=== PATIENT | male | born 1955 | race Caucasian/White ===

== ENCOUNTER 2019-11-25 19:28 | Emergency (ER) | payer MEDICAID, SELFPAY ==
[2019-11-25 19:29] VITALS: BP 133/96; PULSE 96; RESP 18; TEMP 36; O2SAT 95; BMI 19.2
--- NOTE | 2019-11-25 19:31 | ED.RN ---
PHONE NUMBER [phone].
--- NOTE | 2019-11-25 20:22 | ED.VISSUMM ---
- ER Visit Summary Date of Service: 11/25/19 Chief Complaint: Urinary retention History of Present Illness: The patient is a 64 M who presents with urinary retention since last night. Patient states he was able to dribble a small amount throughout the day today. Patient states his last normal urination was last night. Patient admits to some urgency. Patient denies any dysuria or hematuria. Patient denies any fevers or chills. Patient states he thinks he has a history of prostatic hypertrophy but it has been a long time since he saw his primary care physician. Physical Examination: Vital signs are stable. Patient is afebrile. Patient is in no acute distress. Oral mucosa is pink and moist. Neck is supple. Trachea is midline. There is no JVD. Heart was regular rate and rhythm. Lungs are clear and equal bilaterally. Abdomen is soft. Bowel sounds are normal. There is no tenderness. There is some distention of the bladder to just below the umbilicus. There is no rebound or guarding noted. Cranial nerves II through XII are intact. There are no focal motor or sensory deficits noted. Extremities are intact. There is no calf tenderness or edema. Test Results: Urinalysis was obtained. There is no sign of urinary tract infection. Emergency Department Course and Treatment: Saenz catheter was placed. Patient had immediate return of 600 cc of urine. Catheter was maintained. Patient was instructed to follow-up with his primary care physician in 1 to 2 days for catheter removal. Patient understood and was agreeable with the plan. All questions were answered. Disposition: Discharge home Impression: 1. Urinary retention This note was generated with [employer] dictation software. It may contain incorrect words, spelling, and punctuation that were not noted in review of the chart prior to signing ED Disposition - Plan for ED Patient: Disposition: Home or Assisted Living Diagnosis: Urinary retention Instructions: ED Urinary Retention Male Referrals: NOT,DEFINED [Primary Care Provider] - Carroll Singh MD [NON-STAFF] - 2 Days
[2019-11-25 20:23] LABS: Bacteria 0 SEEN /hpf (None Seen); Mucous, Urine 0 SEEN /hpf (<or=2+); Squamous Epithelial Cells - UA 0 SEEN /hpf (0-5); White Blood Cells 0 SEEN /hpf (0-5)
[2019-11-25 20:26] LABS: Color, Urine Yellow (Yellow); Glucose, Dipstick Normal (Normal); Ketone-Dipstick Negative (Negative); Leukocyte Esterase-Dipstick Negative /ul (Negative); Nitrite-Dipstick Negative (Negative); Occult Blood-Urine 10 /ul (Negative); Protein-Dipstick Negative (Negative); Specific Gravity, Urine 1.015 (1.002-1.030); Urine Bilirubin Dipstick Negative (Negative); Urine Clarity Clear (Clear); Urine Urobilinogen Normal (Normal); Urine pH 6.5 (5.0 - 8.0)
[2019-11-25 20:48] LABS: Red Blood Cells-Urine 0-5 SEEN /hpf (0-5)
[2019-11-25 21:16] VITALS: BP 129/84; PULSE 87; RESP 16; O2SAT 96
== END 2019-11-25 21:40 | disposition home or self-care (01) ==
LOC: ED 21:30
PROVIDERS: Emergency Provider Emergency Medicine
DX: R33.9 Retention of urine, unspecified (principal); R39.15 Urgency of urination; Z72.0 Tobacco use
CPT/HCPCS: 51702; 81001; 99283

== ENCOUNTER 2020-02-04 08:10 | Emergency (ER) | payer MEDICAID, SELFPAY ==
[2020-02-04 08:12] VITALS: BP 132/81; PULSE 76; RESP 15; TEMP 36.9; O2SAT 98; BMI 19.3
[2020-02-04 08:58] LABS: Bacteria 0 SEEN /hpf (None Seen); Mucous, Urine 0 SEEN /hpf (<or=2+); Squamous Epithelial Cells - UA 0 SEEN /hpf (0-5); White Blood Cells 0 SEEN /hpf (0-5)
--- NOTE | 2020-02-04 08:58 | ED.RN ---
irving placed and immediate return of 800cc clear yellow urine. abd now soft and pt reports that feels much better. pt reported having catheter at home before and went over teaching on care with no questions voiced.
[2020-02-04 09:00] LABS: Color, Urine Straw (Yellow); Glucose, Dipstick Normal (Normal); Ketone-Dipstick Negative (Negative); Leukocyte Esterase-Dipstick Negative /ul (Negative); Nitrite-Dipstick Negative (Negative); Occult Blood-Urine 10 /ul (Negative); Protein-Dipstick Negative (Negative); Specific Gravity, Urine 1.015 (1.002-1.030); Urine Bilirubin Dipstick Negative (Negative); Urine Clarity Clear (Clear); Urine Urobilinogen Normal (Normal)
[2020-02-04 09:13] LABS: Red Blood Cells-Urine 0-5 SEEN /hpf (0-5)
--- NOTE | 2020-02-04 09:21 | ED.DCSUM_ITS ---
History of Present Illness Chief Complaint: Complaint Narrative: Patient presenting for evaluation secondary to urinary retention. Patient reports that he is had a history of this in the past. Tells me that he really has not urinated since about 2 PM yesterday and is having suprapubic fullness, pain, and discomfort. He denies any flank pain. He denies that there is any sort of preceding dysuria, hematuria. No nausea or vomiting. No other associated symptoms. Review of systems otherwise negative. Past Medical History - Allergies and Home Meds Allergies/Adverse Reactions: Allergies No Known Allergies Allergy (Verified 11/25/19 19:29) Primary Care Physician: Carroll Singh MD [Primary Care Provider] - Prior records reviewed: Yes Past Medical History: None Surgical History: noncontributory Smoking Status: Current every day smoker Alcohol: None Drugs: None Review of Systems All systems negative except as indicated General: Denies: Chills, Fever, Sweats Eyes: Denies: Visual changes - bilaterally, Diplopia ENT: Denies: Rhinorrhea, Sore throat Cardiovascular: Denies: Chest pain, Palpitations Respiratory: Denies: Dyspnea, Cough, Dyspnea on exertion Gastrointestinal: Denies: Abdominal pain, Nausea, Vomiting, Diarrhea, Melena, Hematochezia Genitourinary: Reports: - - Urinary retention Musculoskeletal: Denies: Back pain, Extremity Pain Skin: Denies: Rash, Wounds Neurological: Denies: Headache, Weakness, Numbness Physical Exam Vital Signs/Narrative: Vital Signs Temp Pulse Resp BP Pulse Ox 02/04/20 08:12 98.4 F 76 15 132/81 H 98 Inital Vital Signs reviewed: Yes General: Well developed, No Acute Distress, - - Thin male who appears somewhat older than stated age Head: Normocephalic, Atraumatic Eyes: Perrl, EOMI ENT: Moist mucous membranes, No rhinorrhea Neck: Supple, Nontender Cardiovascular: Regular rate, Regular rhythm, No murmurs Respiratory: No distress, CTA bilaterally, Chest nontender Abdomen: Soft, Nondistended, Normal bowel sounds, Tender - Minimal suprapubic tenderness with some distention noted Back: Nontender, Normal Inspection Extremities: Nontender, No edema Skin: Normal color, No rash Neurological: Alert, Oriented x3, Cranial nerves II-XII grossly intact, Normal Strength, Normal Sensation Psychological: Normal affect, Normal Mood Diagnostic/Tx/Re-eval - Medical Decision Making Patient presented secondary to urinary retention. Bladder scan showed over 1 L of urine in the patient's bladder. Patient was catheterized by nursing, urinalysis was sent shows no signs of infection. Patient will be given follow- up with urology and will be discharged with a leg bag. Will be discharged with a course of Flomax. ED Disposition - Plan for ED Patient: Disposition: Home or Assisted Living Diagnosis: Acute urinary retention Instructions: ED Urinary Retention Male Prescriptions: Tamsulosin HCl [Flomax] 0.4 mg PO DAILY #14 cap Prescription Printed Referrals: Bartolo Campoverde MD [STAFF PHYSICIAN] - 5-7 Days
--- NOTE | 2020-02-04 09:44 | ED.DEP ---
ED Disposition - Plan for ED Patient: Disposition: Home or Assisted Living Diagnosis: Acute urinary retention, Corneal rust ring of right eye Instructions: ED Urinary Retention Male, ED Foreign Body Cornea W Rust Ring Prescriptions: Erythromycin Ophthalmic 1 applic RIGHT EYE TID #1 tube Prescription Printed Tamsulosin HCl [Flomax] 0.4 mg PO DAILY #14 cap Prescription Printed Referrals: Tootie Tatum MD [STAFF PHYSICIAN] - 1 Day
[2020-02-04] MEDS: Tetracaine 0.5% Ophthalmic Bottle 1 DRP RIGHT EYE (09:49)
--- NOTE | 2020-02-04 13:54 | CM.ED ---
Social Work Consult from nursing staff stating that patient is calling in requesting assistance with finding in-network providers for [facility]. Telephone call to patient. Speaking with patient daughter, Margarita. This social and political studies professor able to provide in-network providers for patient in regards to [facility]. Margarita thanking this social and political studies professor. This social and political studies professor utilized on-line provider search for patient insurance. Moni Givens MSW, KARLIE
== END 2020-02-04 10:05 | disposition home or self-care (01) ==
PROVIDERS: Emergency Provider Emergency Medicine; PCP Family Medicine
DX: R33.9 Retention of urine, unspecified (principal); T15.01XA Foreign body in cornea, right eye, initial encounter; X58.XXXA Exposure to other specified factors, initial encounter; Y93.9 Activity, unspecified; Y92.9 Unspecified place or not applicable; Y99.9 Unspecified external cause status; F17.200 Nicotine dependence, unspecified, uncomplicated
CPT/HCPCS: 51702; 81001; 99285

== ENCOUNTER 2020-07-07 06:09 | Emergency (ER) | payer MEDICARE, MEDICAID, SELFPAY ==
[2020-07-07 06:09] VITALS: BP 139/95; PULSE 74; RESP 18; TEMP 36; O2SAT 99; BMI 20.5
--- NOTE | 2020-07-07 06:18 | ED.VIS.GEN ---
History of Present Illness Chief Complaint: Complaint Informant: Patient Onset: Weeks Context: Gradual Onset Timing: Continuous Quality: Difficulty urinating worse past 24 hours Location: Current Severity: Severe Maximum Severity: Severe Worsened by: Has not taken Flomax Relieved by: Nothing Associated Symptoms: Lower abdominal discomfort and inability to urinate Narrative: Patient is an elderly male with history of benign prostatic hypertrophy who presents because of inability urinate since last evening. He has had difficulty for several weeks. Has not had recent blood work. He has not been taking his Flomax. He denies fever, chills night sweats. He denies ocular, visual auditory symptoms. He denies cardiac respiratory symptoms. He denies nausea or vomiting. He denies diarrhea. He is not on anticoagulant. Prior similar symptoms: Yes Recent Illness/Hospitalization: No - Past Medical History (1) History of benign prostatic hyperplasia Status: Acute Past Medical History - Allergies and Home Meds Allergies/Adverse Reactions: Allergies No Known Allergies Allergy (Verified 07/07/20 06:09) Primary Care Physician: Carroll Singh MD [Primary Care Provider] - Surgical History: noncontributory Lives: Alone Smoking Status: Current every day smoker Drugs: None Review of Systems General: Denies: Chills, Fever, Malaise, Sweats Eyes: Denies: Visual changes - bilaterally, Blurred Vision - bilaterally ENT: Denies: Rhinorrhea, Sore throat Cardiovascular: Denies: Chest pain, Palpitations Respiratory: Denies: Dyspnea, Dyspnea on exertion, Orthopnea, Paroxysmal nocturnal dyspnea Gastrointestinal: Reports: Abdominal pain. Denies: Nausea, Vomiting, Diarrhea Genitourinary: Denies: Dysuria, Hematuria, Frequency Musculoskeletal: Denies: Myalgias, Arthralgias, Back pain Skin: Denies: Rash Hematologic: Denies: Easy bruising, Easy bleeding Physical Exam Vital Signs/Narrative: Vital Signs Temp Pulse Resp BP Pulse Ox 07/07/20 06:09 96.8 F L 74 18 139/95 H 99 Inital Vital Signs reviewed: Yes General: Well nourished, Well developed, - - Patient looks uncomfortable. Head: Negative for: Normocephalic, Atraumatic Eyes: Negative for: Perrl, EOMI, Pale conjunctiva, Scleral icterus Neck: Supple, Nontender Cardiovascular: Regular rate, Regular rhythm, No murmurs, Normal S1, Normal S2 Respiratory: No distress, CTA bilaterally, Chest nontender Abdomen: Soft, Nondistended, Normal bowel sounds, Tender, Hypoactive bowel sounds, Mass - Palpable masses distended bladder to the umbilicus.. Negative for: Nontender, No masses, Guarding, Rebound tenderness, Hyperactive bowel sounds, Hepatomegaly, Splenomegaly, Pulsatile mass, Ventral hernia, Inguinal hernia, Umbilical hernia Rectal: Deferred : - - No inguinal lymphadenopathy or hernia. Back: Normal Inspection Extremities: Nontender, No edema Skin: Normal color, No rash, No Trauma. Negative for: Cyanosis, Diaphoresis, Jaundice Neurological: Alert, Oriented x3, Cranial nerves II-XII grossly intact, Normal Strength, Normal Sensation, Normal Gait Psychological: Normal affect Diagnostic/Tx/Re-eval Laboratory Results 07/07/20 07/07/20 06:20 06:20 Sodium 140 Potassium 4.5 Chloride 108 H Carbon Dioxide 30.0 Anion Gap 2 L BUN 16 Creatinine 1.05 Estim Creat Clear Calc 64.29 Est GFR (MDRD) Af Amer 91 Est GFR (MDRD) Non-Af 75 BUN/Creatinine Ratio 15.2 Glucose 95 Calcium 9.1 Urine Color Yellow Urine Clarity Clear Urine pH 6.0 Ur Specific [place] 1.015 Urine Protein Negative Urine Glucose (UA) Normal Urine Ketones Negative Urine Occult Blood 10 H Urine Nitrite Negative Urine Bilirubin Negative Urine Urobilinogen Normal Ur Leukocyte Esterase Negative Urine RBC 0-5 SEEN Urine WBC 0 SEEN Ur Squamous Epith Cells 0 SEEN Urine Bacteria 0 SEEN Urine Mucus 0 SEEN Is no evidence of renal impairment. Urine is not infected. Patient was referred to Dr. Campoverde. - Medical Decision Making Patient clinically has a distended bladder consistent with acute urinary retention. Since patient had problems urinating for some time and has stopped taking his Flomax a basic metabolic panel was obtained to assess renal function. Saenz was ordered. ED Disposition - Plan for ED Patient: Disposition: Home or Assisted Living Diagnosis: Acute urinary retention, History of benign prostatic hyperplasia Instructions: ED Saenz Catheter, Care, ED Urinary Retention, Male Prescriptions: Tamsulosin HCl [Flomax] 0.4 mg PO QHS #30 cap Transmission Status: Pending to [address] Referrals: Carroll Singh MD [Primary Care Provider] - Bartolo Campoverde MD [STAFF PHYSICIAN] - 3-5 Days
[2020-07-07 06:35] LABS: Bacteria 0 SEEN /hpf (None Seen); Mucous, Urine 0 SEEN /hpf (<or=2+); Squamous Epithelial Cells - UA 0 SEEN /hpf (0-5); White Blood Cells 0 SEEN /hpf (0-5)
[2020-07-07 06:37] LABS: Color, Urine Yellow (Yellow); Glucose, Dipstick Normal (Normal); Ketone-Dipstick Negative (Negative); Leukocyte Esterase-Dipstick Negative /ul (Negative); Nitrite-Dipstick Negative (Negative); Occult Blood-Urine 10 /ul (Negative); Protein-Dipstick Negative (Negative); Specific Gravity, Urine 1.015 (1.002-1.030); Urine Bilirubin Dipstick Negative (Negative); Urine Clarity Clear (Clear); Urine Urobilinogen Normal (Normal)
[2020-07-07 06:41] LABS: Anion Gap 2 (5-15); BUN 16 mg/dL (7-18); BUN/Creat Ratio 15.2 RATIO (10-20); Calcium,Total 9.1 mg/dL (8.5-10.1); Chloride 108 mmol/L (98-107); Creatinine, Serum 1.05 mg/dL (0.70-1.30); EST Glomerular Filtration Rate 75 mL/min (>60); Est Glom Filt Rate - Afr Amer 91 mL/min (>60); Estimated Creatinine Clearance 64.29 ml/min; Glucose 95 mg/dL (74-106); Potassium 4.5 mmol/L (3.5-5.1); Sodium Level 140 mmol/L (136-145)
[2020-07-07 06:43] LABS: Red Blood Cells-Urine 0-5 SEEN /hpf (0-5)
[2020-07-07 07:22] VITALS: BP 117/67; PULSE 52; RESP 16; O2SAT 98
== END 2020-07-07 07:24 | disposition home or self-care (01) ==
LOC: ED 07:14
PROVIDERS: Emergency Provider Emergency Medicine; PCP Family Medicine
DX: N40.1 Benign prostatic hyperplasia with lower urinary tract symptoms (principal); R33.9 Retention of urine, unspecified; N32.89 Other specified disorders of bladder; F17.200 Nicotine dependence, unspecified, uncomplicated; Z79.899 Other long term (current) drug therapy
CPT/HCPCS: 51702; 80048; 81001; 99283

== ENCOUNTER 2021-12-04 13:34 | Emergency (ER) | payer MEDICARE, MEDICAID, SELFPAY ==
[2021-12-04 13:35] VITALS: BP 132/84; PULSE 76; RESP 14; TEMP 36.7; O2SAT 96; BMI 21.1
[2021-12-04 15:34] VITALS: BP 128/66; PULSE 88; RESP 14; O2SAT 97
--- NOTE | 2021-12-04 15:59 | VDLE_ITS ---
Reason For Study: Pain RIGHT CFV is compressible, spontaneous, phasic, competent and demonstrates normal augmentation. FV is compressible, spontaneous, phasic, competent and demonstrates normal augmentation. POP V is compressible, spontaneous, phasic, competent and demonstrates normal augmentation. T/P Trunk is compressible. PTV is compressible. RT PerV is compressible. Superficial vein thrombosis noted in the right GSV from mid-distal thigh. Thrombused filled varicose veins noted in the distal thigh. Procedure This is a venous duplex using B-mode, color flow and spectral Doppler. Exam performed portable in ED. A preliminary report was called and/or faxed to ED. VL/Venous Duplex US, Unilateral Interpretation Summary There is no evidence of right lower extremity deep vein thrombosis. Superficial thrombophlebitis right great saphenous vein from the mid to distal thigh. Superficial thrombophlebitis varicose veins right distal thigh Ordering Physician: Casper Gil Referring Physician: Carroll Singh Performed By: Rochelle Murdock RVT
--- NOTE | 2021-12-04 15:59 | ED.VIS.LOWEX ---
HPI History of Present Illness Chief Complaint: Lower Extremity Injury Informant: patient Narrative Narrative: Patient complains of a red line on the inside part of his right thigh. He states he has had a bump down above his knee for a long time. He is never thought anything above it. Never hurt. But now that area is more red and is got a red streak up his thigh. This really just happened in the last day. He tried to make an appointment with the physician but it would not be till mid December. Although he is never had a blood clot or risk factors, he was concerned about clot. He denies fevers chills nausea or vomiting. He has no shortness of breath or chest pain. He states he feels fine except he has noticed this red streak that is new on his leg. Nothing specifically makes it better or worse. PFSH PFSH Home Medications tamsulosin 0.4 mg PO DAILY #14 cap 02/04/20 [Rx Last Taken Unknown] tamsulosin 0.4 mg PO QHS #30 cap 07/07/20 [Rx Last Taken Unknown] naproxen 500 mg PO BID #14 tab 12/04/21 [Rx Last Taken Unknown] Allergy/AdvReac Type Severity Reaction Status Date / Time No Known Allergies Allergy Verified 12/04/21 13:34 Surgical History (Updated 12/04/21 @ 16:13 by Gentry Martinez) S/P TURP (status post transurethral resection of prostate) Social History Smoking Status: Current every day smoker tobacco type: cigarettes ROS ROS ED Constitutional Constitutional ED: Denies chills or fever(s) ENT ENT ED: Denies rhinorrhea Cardiovascular Cardiovascular: Denies chest pain or palpitations Respiratory/Chest Respiratory/Chest: Denies cough or dyspnea Gastrointestinal Gastrointestinal: Denies nausea or vomiting Musculoskeletal Musculoskeletal: Reports other Details: Mild soreness and red streak on right leg ; Denies back pain or neck pain Integumentary Reports other Details: See history of present illness. Neurologic Neurologic: Denies paresthesias Endocrine Endocrinology: Denies polydipsia or polyuria Hematologic/Lymphatic Hematologic/Lymphatic: Denies easy bleeding or easy bruising Allergic/Immunologic Allergic/Immunologic ED: Denies urticaria EXAM Physical Exam Const Vital Signs: 12/04/21 13:35 12/04/21 15:34 Temperature 98.1 F Temperature Source Temporal Pulse Rate 76 88 Respiratory Rate 14 14 Blood Pressure 132/84 H 128/66 H Blood Pressure Mean 100 86 Pulse Ox 96 97 Oxygen Delivery Method Room Air Room Air Positive well nourished and well developed General Appearance ED: well developed and NAD HEENT Reports moist mucous membranes Resp normal respiratory effort and clear to auscultation bilaterally Auscultation: Negative for wheezes Cardio regular rate and regular rhythm GI non-tender Palpation: soft Back/Spine Lumbar Spine / Lower Back: Negative for lumbar spinal tenderness Extremity Extremity Narrative: Patient does have some mild varicosities. Just above the knee and the medial aspect of the distal right thigh there is a slightly firm area. Is not fluctuant. This does not look like an abscess. There is also erythema around it that this about 7 cm around. There is then some erythema that streaks up to the proximal thigh. There is a little bit of firmness along that. Neuro Sensorium / Orientation: alert Skin Skin Narrative: See above. MDM MDM MDM Narrative Medical decision making narrative: Patient's ultrasound shows superficial thrombophlebitis but no deep involvement. I measured him irritability here and likely here at 17 cm from going up to the deep femoral area. I discussed with the patient that some of these will progress but the majority do not. If it progresses up toward the groin he should come in regardless of ultrasound.We will repeat ultrasound in 3, 7, and 21 days. I have the outpatient order form filled out for him. He will call and follow-up. I explained this process to him. I will start him on a short course of nonsteroidals. Patient denies weight changes. He is a smoker. No history of cancer. There is abrasion notedWe also discussed reasons to return such as chest pain shortness of breath fevers or any other concern.If this is significantly enlarging before ultrasound he should still return. Discharge Plan Triage Chief Complaint: Lower Extremity Injury ED Provider: Casper Gil Dx/Rx/DC Orders Clinical Impression: Phlebitis of superficial vein Instructions: ED Thrombophlebitis, Superficial Prescriptions: New naproxen 500 MG tablet 500 mg PO BID Qty: 14 RF: 0 No Action tamsulosin 0.4 MG capsule 0.4 mg PO DAILY Qty: 14 RF: 0 tamsulosin 0.4 MG capsule 0.4 mg PO QHS Qty: 30 RF: 0 Primary Care Provider: Carroll Singh Referrals: Carroll Singh MD [Primary Care Provider] - Disposition Disposition: Home, Self Care
== END 2021-12-04 16:58 | disposition home or self-care (01) ==
PROVIDERS: Emergency Provider Emergency Medicine; PCP Family Medicine; Visit Provider Emergency Medicine
DX: I80.01 Phlebitis and thrombophlebitis of superficial vessels of right lower extremity (principal); F17.210 Nicotine dependence, cigarettes, uncomplicated; Z79.1 Long term (current) use of non-steroidal anti-inflammatories (NSAID)
CPT/HCPCS: 93971; 99282

== ENCOUNTER → 2021-12-07 | Outpatient (CLI) | payer MEDICARE, MEDICAID, SELFPAY ==
--- NOTE | 2021-12-07 13:34 | VDLE_ITS ---
Reason For Study: superficial thrombophlebitis RIGHT CFV is compressible, spontaneous, phasic, competent and demonstrates normal augmentation. FV is compressible, spontaneous, phasic, competent and demonstrates normal augmentation. POP V is compressible, spontaneous, phasic, competent and demonstrates normal augmentation. T/P Trunk is compressible. PTV is compressible. RT PerV is compressible. GSV is dilated and noncompressible. SVT is 2.72 cm from the SF-Junction. Extension of SVT noted from previous study done 12/04/21. Varicose veins in the distal thigh are dilated and noncompressible. Procedure This is a venous duplex using B-mode, color flow and spectral Doppler. Exam performed in department. The exam was abbreviated due to the COVID 19 protocol. The exam was diagnostic. A preliminary report was called and/or faxed to Dr. Singh. VL/Venous Duplex US, Unilateral Interpretation Summary There is no evidence of right lower extremity deep vein thrombosis. Superficial thrombophlebitis right great saphenous vein to within 2.72cm of sapheno-femoral junction. Thrombophlebitis varicose veins right distal thigh Abbreviated Covid 19 protocol utilized Compare to recent study of 12/04/2021. Ordering Physician: Casper Gil Referring Physician: Mauro Singh M.D. Performed By: Gene Marshall RVT
== END | disposition home or self-care (01) ==
PROVIDERS: PCP Family Medicine; Referring Provider Emergency Medicine; Visit Provider Emergency Medicine
DX: I80.02 Phlebitis and thrombophlebitis of superficial vessels of left lower extremity (principal)
CPT/HCPCS: 93971

== ENCOUNTER → 2021-12-11 | Outpatient (CLI) | payer MEDICARE, MEDICAID, SELFPAY ==
--- NOTE | 2021-12-11 13:05 | VDLE_ITS ---
Reason For Study: Superficial thrombophlebitis RIGHT CFV is compressible, spontaneous, phasic, competent and demonstrates normal augmentation. FV is compressible, spontaneous, phasic, competent and demonstrates normal augmentation. POP V is compressible, spontaneous, phasic, competent and demonstrates normal augmentation. T/P Trunk is compressible. PTV is compressible. RT PerV is compressible. GSV is dilated and noncompressible. SVT is 1.40 cm from the SF-Junction. Compared to study done on 12/07/21, slight extension noted. Varicose veins in the distal thigh are dilated and noncompressible. Procedure This is a venous duplex using B-mode, color flow and spectral Doppler. Exam performed in department. Varicose veins noted in the right FV distal image. Patient is on blood thinners. A preliminary report was called and/or faxed to RN's voicemail. VL/Venous Duplex US, Unilateral Interpretation Summary There is no evidence of right lower extremity deep vein thrombosis. Superficial thrombophlebitis right great saphenous vein extending to 1.4 cm from the saphenofemoral junction . Superficial thrombophlebitis varicose veins right distal thigh. Previous examination of December 07, 2021 suggested the thrombosis to be 2.72 cm fro m the saphenofemoral junction. Ordering Physician: Casper Gil Referring Physician: Carroll Singh Performed By: Rochelle Murdock RVT
== END | disposition home or self-care (01) ==
LOC: CVS 13:02
PROVIDERS: PCP Family Medicine; Referring Provider Emergency Medicine; Visit Provider Emergency Medicine
DX: I80.01 Phlebitis and thrombophlebitis of superficial vessels of right lower extremity (principal)
CPT/HCPCS: 93971

== ENCOUNTER → 2021-12-25 | Outpatient (CLI) | payer MEDICARE, MEDICAID, SELFPAY ==
--- NOTE | 2021-12-25 09:03 | VDLE_ITS ---
Reason For Study: Superficial thrombophlebitis RIGHT CFV is compressible, spontaneous, phasic, competent and demonstrates normal augmentation. FV is compressible, spontaneous, phasic, competent and demonstrates normal augmentation. POP V is compressible, spontaneous, phasic, competent and demonstrates normal augmentation. T/P Trunk is compressible. PTV is compressible. RT PerV is compressible. GSV is dilated and noncompressible. SVT is 3.86 cm from the SF-Junction. Compared to study done on 12/11/21, slight improvement noted. Varicose veins in the distal thigh are dilated and noncompressible. Procedure This is a venous duplex using B-mode, color flow and spectral Doppler. Exam performed in department. A preliminary report was called and/or faxed to PCP: [place]. VL/Venous Duplex US, Unilateral Interpretation Summary There is no evidence of right lower extremity deep vein thrombosis. Superficial thrombophlebitis of right great saphenous vein extending to 3.86 cm from the saphenofemoral junctio n. Slightly improved from December 11, 2021 Superficial thrombophlebitis varicose veins distal right thigh Ordering Physician: Casper Gil Referring Physician: Carroll Singh Performed By: Rochelle Murdock RVT
== END | disposition home or self-care (01) ==
LOC: CVS 09:02
PROVIDERS: PCP Family Medicine; Referring Provider Emergency Medicine; Visit Provider Emergency Medicine
DX: I80.02 Phlebitis and thrombophlebitis of superficial vessels of left lower extremity (principal)
CPT/HCPCS: 93971

== ENCOUNTER 2022-06-07 23:16 | Emergency (ER) | payer MEDICARE, MEDICAID, SELFPAY ==
[2022-06-07 23:18] VITALS: BP 124/76; PULSE 85; RESP 16; TEMP 36.6; O2SAT 87; BMI 22.8
[2022-06-07 23:27] VITALS: O2SAT 100
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
[2022-06-08 00:17] LABS: Carboxyhemoglobin Frac (CO) 30.1 % (0.0-1.5)
[2022-06-08 00:18] VITALS: BP 131/81; PULSE 82; RESP 23; O2SAT 100
[2022-06-08 01:00] VITALS: BP 129/79; PULSE 86; RESP 26; O2SAT 99
[2022-06-08 02:00] VITALS: BP 126/75; PULSE 77; RESP 23; O2SAT 100
[2022-06-08 03:20] LABS: Carboxyhemoglobin Frac (CO) 10.4 % (0.0-1.5)
[2022-06-08 03:21] VITALS: PULSE 79; RESP 21; O2SAT 97
== END 2022-06-08 03:21 | disposition home or self-care (01) ==
PROVIDERS: Emergency Provider Emergency Medicine; PCP Family Medicine; Visit Provider Emergency Medicine
DX: T23.202A Burn of second degree of left hand, unspecified site, initial encounter (principal); T31.0 Burns involving less than 10% of body surface; X08.8XXA Exposure to other specified smoke, fire and flames, initial encounter; T24.232A Burn of second degree of left lower leg, initial encounter; F17.210 Nicotine dependence, cigarettes, uncomplicated; Z77.098 Contact with and (suspected) exposure to other hazardous, chiefly nonmedicinal, chemicals
CPT/HCPCS: 82375; 99282; A4216

== ENCOUNTER 2024-11-01 11:32 | Emergency (ER) | payer MEDICARE, SELFPAY ==
[2024-11-01] VITALS (7 sets, daily range): BP systolic 108–140; BP diastolic 61–81; PULSE 82–96; RESP 19–30; TEMP 36.6–36.7; O2SAT 95–96; BMI 26.7
--- NOTE | 2024-11-01 12:14 | EKG12_ITS ---
Test Reason : COUGH Blood Pressure : */* mmHG Vent. Rate : 84 BPM Atrial Rate : 84 BPM P-R Int : 130 ms QRS Dur : 116 ms QT Int : 360 ms P-R-T Axes : 75 100 56 degrees QTcB Int : 425 ms Normal sinus rhythm Right bundle branch block Abnormal ECG Confirmed by John Chris ([id number]), film or videotape editor TAN GLASS ([id number]) on 11/06/2024 12:08:20 PM Referred By: Confirmed By: John Chris
--- NOTE | 2024-11-01 12:14 | CT_ITS ---
PROCEDURE: ABDOMEN/PEL W ORAL CONT ONLY 11/01/2024 REASON FOR EXAM: BILATERAL LOWER ABD PAIN TECHNIQUE: Abdomen and pelvis CT without intravenous contrast. Noncontrast technique limits evaluation of the abdominal and pelvic viscera. Coronal and Sagittal reconstruction series were provided. One or more dose reduction techniques were used (e.g., Automated exposure control, adjustment of the mA and/or kV according to patient size, use of iterative reconstruction technique). PATIENT PREPARATION: Per protocol ORAL CONTRAST: Administered COMPARISON: None. FINDINGS: Lung bases: Tree-in-bud opacification and nodularity throughout the bibasilar lungs, incompletely evaluated. The heart is normal in size with coronary artery calcifications. Liver: The liver is normal in size with diffuse hepatic steatosis. No biliary ductal dilation. Gallbladder: No radiopaque stones within the gallbladder. Spleen: Normal size. Pancreas: The unopacified pancreas is unremarkable. Adrenals: Mild thickening of the left adrenal gland. No adrenal mass. Kidneys: No hydronephrosis or nephrolithiasis. Bladder: Mildly distended and unremarkable. Reproductive Organs: Prior TURP with expected contour of the bladder base. Bowel: Oral contrast material opacifies the distal small bowel and large bowel loops. The bowel loops are normal in caliber. No ascites or pneumoperitoneum. Normal appendix. Lymph nodes: Visualization is limited without the use of IV contrast. No large lymphadenopathy. Vasculature: Visualization is limited without the use of IV contrast. Severe calcific plaque of the aortoiliac vessels. Bones: Thoracolumbar spondylosis. Schmorl's node/chronic height loss of the L5 vertebral body. CT/Abdomen/Pel W ORAL Cont Only IMPRESSION: 1. No acute abdominopelvic finding. 2. Tree-in-bud opacification and nodularity throughout the bibasilar lungs, com patible with aspiration pneumonia/pneumonitis. Clinical and laboratory correlation recommended. 3. Diffuse hepatic steatosis. Reading Location: [id number]
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
[2024-11-01 12:22] LABS: Absolute Lymphocyte Count 1.96 X10^3/uL (0.83-4.51); Absolute Neutrophil Count 9.7 X10^3/uL (2.0-7.7); Basophil# 0.07 X10^3/uL; Basophil% 0.5 % (0-1); Eosinophil# 0.04 X10^3/uL; Eosinophils% 0.3 % (0-5); Hematocrit 48.9 % (40-54); Hemoglobin 17.2 g/dL (13.0-16.5); Lymphocyte # 1.96 X10^3/ul (0.83-4.51); Lymphocyte % 14.7 % (19-41); Mean Corp Hgb Conc 35.2 g/dL (32-36); Mean Corpuscular Volume 88.1 fL (80-94); Mean Platelet Vol. 9.8 fl (6.2-12.0); Monocyte# 1.45 X10^3/uL; Monocyte% 10.9 % (0-10); NRBC Flagged by Analyzer 0 % (0-5); Neutrophil # 9.71 X10^3/uL (2.7-7.7); Platelet Count 230 K/mm3 (150-450); RBC Distribution Width CV 12.8 % (11.6-14.6); RBC Distribution Width SD 41.6 fl (35.1-43.9); Red Blood Count 5.55 M/mm3 (4.6-6.2); White Blood Count 13.3 K/mm3 (4.4-11.0)
[2024-11-01] MEDS: MethylPREDNISolone 125 MG/2 ML Vial IV (12:22)
[2024-11-01] MEDS: Albuterol 2.5 MG/3 ML VIAL.NEB. INHALATION (12:31)
[2024-11-01] MEDS: Ipratropium/Albuterol Sulfate 3 ML AMPUL.NEB INHALATION (12:31)
[2024-11-01 13:16] LABS: Troponin T High Sensitivity 7 ng/L (<=22)
[2024-11-01 13:32] LABS: ALB/GLOB Ratio 1.2 RATIO (0.9-2.4); AST(SGOT) 33 U/L (<=37); Alanine Aminotransfer ALT/SGPT 16 U/L (<=46); Albumin, Serum 3.6 g/dL (3.4-4.8); Alkaline Phosphatase 76 U/L (40-129); Anion Gap 14 (5-15); BUN 13 mg/dL (4-19); BUN/Creat Ratio 13.4 RATIO (10-20); Calcium,Total 8.6 mg/dL (7.6-11.0); Carbon Dioxide 16.9 mmol/L (21.0-32.0); Chloride 99 mmol/L (98-108); Creatinine, Serum 0.99 mg/dL (0.70-1.20); EST Glomerular Filtration Rate 83 (>60); Estimated Creatinine Clearance 63.55 ml/min (50-250); Glucose 93 mg/dL (70-99); Protein, Total 6.6 g/dL (5.9-8.4); Sodium Level 130 mmol/L (133-145); Total Bilirubin 1.08 mg/dL (0.00-1.30)
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
== END 2024-11-01 15:22 | disposition home or self-care (01) ==
PROVIDERS: Emergency Provider Emergency Medicine; PCP Family Medicine; Visit Provider Emergency Medicine
DX: U07.1 COVID-19 (principal); J06.9 Acute upper respiratory infection, unspecified; R10.31 Right lower quadrant pain; R10.32 Left lower quadrant pain; Z79.899 Other long term (current) drug therapy; Z87.891 Personal history of nicotine dependence
CPT/HCPCS: 71046; 74176; 80053; 84484; 85025; 87631; 93005; 94640; 96374; 99284; A4216

== ENCOUNTER 2025-03-31 22:07 | Emergency (ER) | payer MEDICARE, SELFPAY ==
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
[2025-03-31 22:09] VITALS: BP 145/91; PULSE 81; RESP 17; TEMP 36.4; O2SAT 99; BMI 26.8
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
[2025-03-31 23:08] VITALS: BP 145/91; PULSE 71; RESP 16; O2SAT 100
[2025-04-01] VITALS: BP 142/88; PULSE 84; RESP 16; O2SAT 98
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
[2025-04-01 01:40] VITALS: BP 146/102; PULSE 80; RESP 18; TEMP 36.8; O2SAT 98
[2025-04-01] MEDS: 0.9% Normal Saline (500mL Bag) 500 ML 999 ML IV (01:46)
[2025-04-01 03:00] VITALS: BP 135/91; PULSE 71; RESP 16; O2SAT 98
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
[2025-04-01 03:31] VITALS: BP 140/90; PULSE 80; RESP 16; O2SAT 100
[2025-04-01] MEDS: HYDROcodone Bitartrate/Apap 5/325 Tablet PO (03:47)
== END 2025-04-01 04:29 | disposition home or self-care (01) ==
PROVIDERS: Emergency Provider Emergency Medicine; PCP Family Medicine; Visit Provider Emergency Medicine
DX: S02.2XXA Fracture of nasal bones, initial encounter for closed fracture (principal); S00.81XA Abrasion of other part of head, initial encounter; Z87.891 Personal history of nicotine dependence; S52.332A Displaced oblique fracture of shaft of left radius, initial encounter for closed fracture; S62.327A Displaced fracture of shaft of fifth metacarpal bone, left hand, initial encounter for closed fracture; S52.572A Other intraarticular fracture of lower end of left radius, initial encounter for closed fracture; V43.52XA Car driver injured in collision with other type car in traffic accident, initial encounter
CPT/HCPCS: 29405; 70450; 70486; 71046; 73090; 73130; 96361; 96374; 96375; 99285; J2405

== ENCOUNTER → 2025-04-07 | Outpatient (CLI) | payer MEDICARE, SELFPAY ==
[2025-04-07 18:21] LABS: Hematocrit 48.8 % (40-54); Hemoglobin 16.5 g/dL (13.0-16.5); Immature Granulocytes Count 0.100 X10^3/uL (0.0-0.0); Mean Corp Hgb Conc 33.8 g/dL (32-36); Mean Corpuscular Volume 90.5 fL (80-94); Mean Platelet Vol. 9.5 fl (6.2-12.0); NRBC Flagged by Analyzer 0 % (0-5); Platelet Count 207 K/mm3 (150-450); RBC Distribution Width CV 12.8 % (11.6-14.6); RBC Distribution Width SD 42.0 fl (35.1-43.9); Red Blood Count 5.39 M/mm3 (4.6-6.2); White Blood Count 10.8 K/mm3 (4.4-11.0)
[2025-04-07 19:33] LABS: Anion Gap 11 (5-15); BUN 16 mg/dL (4-19); BUN/Creat Ratio 16.1 RATIO (10-20); Calcium,Total 9.1 mg/dL (7.6-11.0); Carbon Dioxide 26.7 mmol/L (21.0-32.0); Chloride 100 mmol/L (98-108); Glucose 105 mg/dL (70-99); Potassium 4.1 mmol/L (3.3-5.1)
== END | disposition home or self-care (01) ==
LOC: LAB 17:56
PROVIDERS: PCP Family Medicine; Referring Provider Specialist; Visit Provider Specialist
DX: Z01.818 Encounter for other preprocedural examination (principal); Z01.810 Encounter for preprocedural cardiovascular examination
CPT/HCPCS: 36415; 80048; 85025

== ENCOUNTER 2025-06-08 14:50 | Emergency (ER) | payer MEDICARE, SELFPAY ==
[2025-06-08 14:53] VITALS: BP 165/94; PULSE 110; RESP 18; TEMP 36.1; O2SAT 99; BMI 24.3
--- NOTE | 2025-06-08 15:20 | EKG12_ITS ---
Test Reason : Blood Pressure : */* mmHG Vent. Rate : 86 BPM Atrial Rate : 86 BPM P-R Int : 130 ms QRS Dur : 110 ms QT Int : 362 ms P-R-T Axes : 83 101 83 degrees QTcB Int : 433 ms Normal sinus rhythm with sinus arrhythmia Incomplete right bundle branch block Possible Right ventricular hypertrophy Nonspecific ST abnormality Abnormal ECG Confirmed by JOSE LALA, JORDAN ([id number]), rewrite editor TAN GLASS ([id number]) on 06/14/2025 6:18:43 AM Referred By: Confirmed By: JORDAN GARCIA MD
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
[2025-06-08] MEDS: 0.9% Normal Saline (1000mL) 1,000 ML 999 ML IV ×2 (15:32→17:12)
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
[2025-06-08 15:57] LABS: Hematocrit 46.7 % (40-54); Hemoglobin 15.9 g/dL (13.0-16.5); Immature Granulocytes Count 0.090 X10^3/uL (0.0-0.0); Mean Corp Hgb Conc 34.0 g/dL (32-36); Mean Corpuscular Volume 89.1 fL (80-94); Mean Platelet Vol. 9.2 fl (6.2-12.0); NRBC Flagged by Analyzer 0 % (0-5); Platelet Count 355 K/mm3 (150-450); RBC Distribution Width CV 12.2 % (11.6-14.6); RBC Distribution Width SD 40.0 fl (35.1-43.9); Red Blood Count 5.24 M/mm3 (4.6-6.2); White Blood Count 11.1 K/mm3 (4.4-11.0)
[2025-06-08 16:25] LABS: AST(SGOT) 19 U/L (<=37); Alanine Aminotransfer ALT/SGPT 13 U/L (<=46); Albumin, Serum 4.2 g/dL (3.4-4.8); Alkaline Phosphatase 127 U/L (40-129); Anion Gap 10 (5-15); BUN 14 mg/dL (4-19); BUN/Creat Ratio 15.2 RATIO (10-20); Calcium,Total 9.3 mg/dL (7.6-11.0); Carbon Dioxide 26.5 mmol/L (21.0-32.0); Chloride 101 mmol/L (98-108); Estimated Creatinine Clearance 75.50 ml/min (50-250); Globulin 3.0 g/dL (2.2-4.2); Glucose 106 mg/dL (70-99); Potassium 4.5 mmol/L (3.3-5.1)
[2025-06-08 17:51] VITALS: BP 150/97
[2025-06-08 18:37] VITALS: BP 150/97; PULSE 110; RESP 18; TEMP 36.1; O2SAT 99
[2025-06-08 19:23] LABS: Prothrombin Time (Protime)PT. 13.2 SECONDS (11.7-14.9)
[2025-06-08 19:24] LABS: Partial Thromboplast Time 29.3 Seconds (24.1-36.2)
== END 2025-06-08 18:40 | disposition home or self-care (01) ==
PROVIDERS: Emergency Provider Emergency Medicine; PCP Family Medicine; Visit Provider Emergency Medicine
DX: M79.632 Pain in left forearm (principal); T84.123A Displacement of internal fixation device of bone of left forearm, initial encounter; W00.0XXA Fall on same level due to ice and snow, initial encounter; S52.302D Unspecified fracture of shaft of left radius, subsequent encounter for closed fracture with routine healing; L03.114 Cellulitis of left upper limb; Z87.891 Personal history of nicotine dependence
CPT/HCPCS: 29125; 73090; 80053; 83605; 85025; 85610; 85730; 87040; 93005; 96360; 96361; 99284; A4216